=== PATIENT | female | born 1975 | race African-American/Black ===

== ENCOUNTER 2020-02-02 06:21 | Emergency (ER) | payer OTHER ==
[~2020-02-02] VITALS: Ht 157.5 cm; Wt 81.6 kg
[2020-02-02] MEDS ORDERED: KETOROLAC TROMETH 60MG/2ML VIAL IM ONE (07:15)
[2020-02-02 07:32] VITALS: BP 156/104
== END 2020-02-02 07:49 | disposition home or self-care (01) ==
LOC: ER 06:21
DX: S83.91XA Sprain of unspecified site of right knee, initial encounter (principal); W01.0XXA Fall on same level from slipping, tripping and stumbling without subsequent striking against object, initial encounter; Y93.89 Activity, other specified; Y92.89 Other specified places as the place of occurrence of the external cause; Y99.8 Other external cause status
CPT/HCPCS: 73562; 96372; 99283; J1885

== ENCOUNTER 2021-08-28 16:39 | Emergency (ER) | payer OTHER ==
[~2021-08-28] VITALS: Ht 157.5 cm; Wt 90.7 kg
[2021-08-28 16:41] VITALS: BP 165/110
[2021-08-29] MEDS ORDERED: IBUP800T27 PO (07:49)
== END 2021-08-28 17:38 | disposition left against medical advice (07) ==
LOC: ER 16:39
DX: M25.561 Pain in right knee (principal); Z53.21 Procedure and treatment not carried out due to patient leaving prior to being seen by health care provider; W19.XXXA Unspecified fall, initial encounter; Y93.89 Activity, other specified; Y92.89 Other specified places as the place of occurrence of the external cause; Y99.8 Other external cause status

== ENCOUNTER 2021-08-29 06:22 | Emergency (ER) | payer OTHER ==
[~2021-08-29] VITALS: Ht 157.5 cm; Wt 81.6 kg
[2021-08-29 06:22] VITALS: BP 135/90
[2021-08-29] MEDS ORDERED: IBUP800T27 PO (07:49)
== END 2021-08-29 08:19 | disposition home or self-care (01) ==
LOC: ER 06:22
DX: S83.91XA Sprain of unspecified site of right knee, initial encounter (principal); F17.210 Nicotine dependence, cigarettes, uncomplicated; Z79.1 Long term (current) use of non-steroidal anti-inflammatories (NSAID); W06.XXXA Fall from bed, initial encounter; Y93.89 Activity, other specified; Y92.89 Other specified places as the place of occurrence of the external cause; Y99.8 Other external cause status
CPT/HCPCS: 29505; 73502; 73562